=== PATIENT | female | born 1960 | race Caucasian/White ===

== ENCOUNTER 2017-10-12 13:52 | Emergency (ER) | payer MEDICAID, OTHER ==
--- NOTE | 2017-10-12 14:31 | Emergency Department Record ---
History of Present Illness - General Chief complaint: ENT Stated complaint: RINGING IN EARS Time Seen by Provider: 10/12/17 14:11 Source: Patient, Family Mode of Arrival: Ambulatory Limitations: No limitations - History of Present Illness Initial comments: 57 yo female presents with a concern about ongoing ringing in her ears. The ringing started just over 2 months ago. No trauma or recent illness. She saw her doctor. No medication were identified as the cause. She has not had any other symptoms. The ringing seems more intense today. She had an MRI about a week ago. She has not been informed regarding the results. She has not seen and ENT or rehabilitation counselor. Onset/Timin -: Month(s) Location: R ear, L ear Severity: Moderate Consistency: Constant Improves with: None Worsens with: None Context- Ear: Other (Ringing) - Related Data Previous Rx's Medication Instructions Recorded Alprazolam [Xanax] 0.25 mg PO QHS #5 tablet 10/12/17 Allergies Allergy/AdvReac Type Severity Reaction Status Date / Time cephalexin monohydrate AdvReac Unknown unknown Verified 10/12/17 14:07 [From Keflex] ciprofloxacin [From Cipro] AdvReac Unknown unknown Verified 10/12/17 14:07 ciprofloxacin HCl AdvReac Unknown unknown Verified 10/12/17 14:07 [From Cipro] naproxen sodium AdvReac Unknown unknown Verified 10/12/17 14:07 [From Anaprox] Travel Screening - Travel/Exposure Within Last 30 Days Have you traveled within the last 30 days?: No - Travel/Exposure Within Last Year Have you traveled outside the [place] in the last year?: No - Additonal Travel Details Have you been exposed to anyone with a communicable illness?: No - Travel Symptoms Symptom Screening: None Review of Systems Constitutional: Denies: Chills, Fever, Malaise, Weakness Eyes: Denies: Eye discharge, Eye pain, Photophobia, Vision change ENT: Reports: As per HPI, Hearing loss (ringing 2 months). Denies: Congestion, Dental pain, Ear pain, Epistaxis, Throat pain Respiratory: Denies: Cough, Dyspnea Cardiovascular: Denies: Chest pain, Syncope Endocrine: Denies: Fatigue Gastrointestinal: Denies: Abdominal pain, Diarrhea, Nausea, Vomiting Musculoskeletal: Denies: Arthralgia, Joint swelling, Myalgia Skin: Denies: Bruising, Change in color, Rash Neurological: Denies: Abnormal gait, Confusion, Headache, Paresthesias, Seizure , Tingling, Tremors, Vertigo Psychiatric: Denies: Anxiety Hematological/Lymphatic: Denies: Blood Clots, Easy bleeding, Easy bruising, Swollen glands Past Medical History - SOCIAL HISTORY Smoking Status: Former smoker Alcohol Use: None Drug Use: None - RESPIRATORY Hx Respiratory Disorders: Yes Hx Asthma: Yes Comment:: ?histoplasmosis -> scared lungs - CARDIOVASCULAR Hx Cardio Disorders: Yes Hx Edema: Yes (BLE) - NEURO Hx Neuro Disorders: Yes Hx of Migraines: Yes - GI Hx GI Disorders: Yes Hx Celiac Disease: Yes Hx Reflux: Yes - Hx Genitourinary Disorders: No - ENDOCRINE Hx Endocrine Disorders: No - MUSCULOSKELETAL Hx Musculoskeletal Disorders: Yes Hx Arthritis: Yes (Rheumatoid) - PSYCH Hx Psych Problems: No - HEMATOLOGY/ONCOLOGY Hx Hematology/Oncology Disorders: Yes Hx Cancer: Yes (nose skin caner) Family Medical History Any Significant Family History?: No Physical Exam - General General Appearance: Alert, Oriented x3, Cooperative, No acute distress Limitations: No limitations - Head Head exam: Normal inspection - Eye Eye exam: Normal appearance, PERRL. negative: Conjunctival injection, Scleral icterus - ENT ENT exam: Normal exam, Mucous membranes moist, TM's normal bilaterally (TM's are normal without redness or swelling, mild wax in the right ear) Ear exam: Normal external inspection. negative: Auricular hematoma, Auricular trauma, External canal tenderness Nasal Exam: negative: Active bleeding, Discharge Mouth exam: Normal external inspection Teeth exam: Normal inspection Throat exam: Normal inspection - Neck Neck exam: Normal inspection - Respiratory Respiratory exam: Normal lung sounds bilaterally. negative: Respiratory distress - Cardiovascular Cardiovascular Exam: Regular rate, Normal rhythm, Normal heart sounds - Rectal Rectal exam: Deferred - exam: Deferred - Extremities Extremities exam: Normal inspection - Back Back exam: Reports: Normal inspection - Neurological Neurological exam: Alert, CN II-XII intact, Normal gait, Oriented X3. negative : Abnormal gait, Altered - Psychiatric Psychiatric exam: Normal affect, Normal mood. negative: Agitated, Anxious - Skin Skin exam: Dry, Intact, Normal color, Warm Course Vital Signs 10/12/17 10/12/17 14:03 14:10 Temperature 97.4 F L 97.4 F L Pulse Rate [ 84 Pulse Ox Probe] Respiratory 18 18 Rate Blood Pressure 141/96 [Right Arm] Pulse Ox 98 98 - Reevaluation(s) Reevaluation #1: The TM's are normal on visual examination She is able to clearly understand normal levels of speech. 10/12/17 14:32 10/12/17 14:37 MRI from 10/04/17 reviewed. Mild small vessel disease, no infarction, hemorrhage , mass 10/12/17 14:48 The patient was advised to see her doctor this week to consider further work up or referrals She does have some anxiety from the tinnitus and trouble sleeping She will be given a very limited number of Xanax for this Disposition Disposition: Discharge Clinical Impression: Tinnitus Qualifiers: Laterality: bilateral Qualified Code(s): H93.13 - Tinnitus, bilateral Disposition: Home, Self-Care Condition: (1) Good Instructions: Tinnitus (ED) Additional Instructions: Call your doctor tomorrow to report your ongoing symptoms You may need a referral to see and ENT and an rehabilitation counselor for additional testing or evaluation Prescriptions: Alprazolam [Xanax] 0.25 mg PO QHS #5 tablet Forms: Patient Portal Access Time of Disposition: 14:49 Quality - Quality Measures Quality Measures: N/A - Blood Pressure Screening Does Patient Have Any of the Following: No Blood Pressure Classification: Hypertensive Reading Systolic Measurement: 141 Diastolic Measurement: 96 Screening for High Blood Pressure: < Pre-Hypertensive BP, F/U Documented > [ G8950] Pre-Hypertensive Follow-up Interventions: Referral to alternative/primary care provider.
== END 2017-10-12 15:01 | disposition home or self-care (01) ==
LOC: ER 13:52
DX: H93.13 Tinnitus, bilateral (principal); Z87.891 Personal history of nicotine dependence
CPT/HCPCS: 99282

== ENCOUNTER 2018-02-24 22:26 | Emergency (ER) | payer MEDICAID, OTHER ==
[2018-02-24 23:06] LABS: BASO % 0.4 % (0-6); EOS % 0.8 % (0-6); HEMATOCRIT 43.3 % (35.0-47.0); HEMOGLOBIN 14.2 gm/dl (11.6-16.0); LYMPH % 14.6 % (16-45); MEAN CELL VOLUME 93.9 fl (81-97); MEAN CORPUSCULAR HEMOGLOBIN 30.8 pg (27-33); MEAN CORPUSCULAR HGB CONC 32.8 g/dl (32-36); MEAN PLATELET VOLUME 10.8 fl (7.4-10.4); MONO % 10.2 % (0-9); PLATELET COUNT 381 K/uL (130-400); RED BLOOD COUNT 4.61 M/uL (3.80-5.40); RED CELL DISTRIBUTION WIDTH 13.7 % (11.5-14.5); WHITE BLOOD COUNT W/O DIFF 12.1 K/uL (4.2-12.2)
[2018-02-24 23:19] LABS: BLOOD UREA NITROGEN 28 mg/dL (6-20); CREATININE 0.7 mg/dL (0.5-0.9); EST GLOMERULAR FILTRATION RATE > 60 mL/min; TOTAL PROTEIN 7.9 g/dL (6.6-8.7)
[2018-02-24 23:22] LABS: GLUCOSE,RANDOM 120 mg/dL (74-109)
[2018-02-24 23:24] LABS: ALB/GLOB RATIO 1.2 (1.1-1.8); ALBUMIN 4.3 g/dL (4.0-5.0); ALKALINE PHOSPHATASE 88 U/L (35-104); ALT/SGPT 27 U/L (<33); AST/SGOT 20 U/L (10.0-35.0)
--- NOTE | 2018-02-24 23:57 | Emergency Department Record ---
History of Present Illness - General Chief Complaint: Shortness of breath Stated Complaint: NABEEL/SWELLING IN LEGS Time Seen by Provider: 02/24/18 22:53 Source: Patient Mode of Arrival: Ambulatory Limitations: No limitations - History of Present Illness Initial Comments: pt feels lasix isnt working because her legs still have swelling and shes sob. it has been in the 90s Complaint: Shortness of breath Onset/Timin -: Days(s) Severity: Mild Consistency: Getting worse Improves With: Upright position Worsens With: Lying flat, Movement Context: Anxiety, Occurred during exertion Associated Symptoms: Orthopnia Treatments Prior to Arrival: CPR - Related Data Home Oxygen Therapy: No Home Medications Medication Instructions Recorded Confirmed Last Taken Adalimumab [Humira Pen] 40 mg INJ ASDIR 02/24/18 02/24/18 Unknown Cyclobenzaprine HCl 10 mg PO Q8H 02/24/18 02/24/18 Unknown Furosemide [Lasix] 40 mg PO DAILY 02/24/18 02/24/18 02/24/18 Hydroxychloroquine Sulfate 400 mg PO DAILY 02/24/18 02/24/18 02/24/18 [Plaquenil] Previous Rx's Medication Instructions Recorded Alprazolam [Xanax] 0.25 mg PO QHS #5 tablet 10/12/17 Allergies Allergy/AdvReac Type Severity Reaction Status Date / Time cephalexin monohydrate AdvReac Unknown unknown Verified 10/12/17 14:07 [From Keflex] ciprofloxacin [From Cipro] AdvReac Unknown unknown Verified 10/12/17 14:07 ciprofloxacin HCl AdvReac Unknown unknown Verified 10/12/17 14:07 [From Cipro] naproxen sodium AdvReac Unknown unknown Verified 10/12/17 14:07 [From Anaprox] Travel Screening - Travel/Exposure Within Last 30 Days Have you traveled within the last 30 days?: No - Travel Symptoms Symptom Screening: Fatigue Review of Systems Reviewed: No additional complaints except as noted below Constitutional: Reports: As per HPI. Denies: Chills, Fever, Malaise, Night sweats, Weakness, Weight change Eyes: Reports: As per HPI. Denies: Eye discharge, Eye pain, Photophobia, Vision change ENT: Reports: As per HPI. Denies: Congestion, Dental pain, Ear pain, Epistaxis , Hearing loss, Throat pain Respiratory: Reports: As per HPI, Dyspnea. Denies: Cough, Hemoptysis, Stridor, Wheezes Cardiovascular: Reports: As per HPI. Denies: Arrhythmia, Chest pain, Dyspnea on exertion, Edema, Murmurs, Orthopnea, Palpitations, Paroxysmal nocturnal dyspnea, Rheumatic Fever, Syncope Endocrine: Reports: As per HPI. Denies: Fatigue, Heat or cold intolerance, Polydipsia, Polyuria Gastrointestinal: Reports: As per HPI. Denies: Abdominal pain, Constipation, Diarrhea, Hematemesis, Hematochezia, Melena, Nausea, Vomiting Genitourinary: Reports: As per HPI. Denies: Abnormal menses, Discharge, Dyspareunia, Dysuria, Frequency, Hematuria, Incontinence, Retention, Urgency Musculoskeletal: Reports: As per HPI. Denies: Arthralgia, Back pain, Gout, Joint swelling, Myalgia, Neck pain Skin: Reports: As per HPI. Denies: Bruising, Change in color, Change in hair/ nails, Lesions, Pruritus, Rash Neurological: Reports: As per HPI. Denies: Abnormal gait, Confusion, Headache, Numbness, Paresthesias, Seizure, Tingling, Tremors, Vertigo, Weakness Psychiatric: Reports: As per HPI. Denies: Anxiety, Auditory hallucinations, Depression, Homicidal thoughts, Suicidal thoughts, Visual hallucinations Hematological/Lymphatic: Reports: As per HPI. Denies: Anemia, Blood Clots, Easy bleeding, Easy bruising, Swollen glands Past Medical History - SOCIAL HISTORY Smoking Status: Former smoker Alcohol Use: None Drug Use: None - RESPIRATORY Hx Respiratory Disorders: Yes Hx Asthma: Yes Comment:: ?histoplasmosis -> scared lungs - CARDIOVASCULAR Hx Cardio Disorders: Yes Hx Edema: Yes (BLE) - NEURO Hx Neuro Disorders: Yes Hx of Migraines: Yes - GI Hx GI Disorders: Yes Hx Celiac Disease: Yes Hx Reflux: Yes - Hx Genitourinary Disorders: No - ENDOCRINE Hx Endocrine Disorders: No - MUSCULOSKELETAL Hx Musculoskeletal Disorders: Yes Hx Arthritis: Yes (Rheumatoid, Psoriatic) - PSYCH Hx Psych Problems: No - HEMATOLOGY/ONCOLOGY Hx Hematology/Oncology Disorders: Yes Hx Cancer: Yes (nose skin caner) Family Medical History Any Significant Family History?: No Physical Exam - General General Appearance: Alert, Oriented x3, Cooperative, Mild distress - Head Head exam: Normal inspection - Eye Eye exam: Normal appearance, PERRL, EOMI Pupils: Normal accommodation - ENT ENT exam: Normal exam, Mucous membranes moist, Normal external ear exam, Normal orophraynx Ear exam: Normal external inspection. negative: External canal tenderness Nasal Exam: Normal inspection. negative: Discharge, Sinus tenderness Mouth exam: Normal external inspection, Tongue normal Teeth exam: Normal inspection. negative: Dental caries Throat exam: Normal inspection. negative: Tonsillar erythema, Tonsillar exudate - Neck Neck exam: Normal inspection, Full ROM. negative: Tenderness - Respiratory Respiratory exam: Normal lung sounds bilaterally. negative: Respiratory distress - Cardiovascular Cardiovascular Exam: Regular rate, Normal rhythm, Normal heart sounds - GI/Abdominal GI/Abdominal exam: Soft, Normal bowel sounds. negative: Tenderness - Rectal Rectal exam: Deferred - exam: Deferred - Extremities Extremities exam: Normal inspection, Full ROM, Normal capillary refill, Pedal edema. negative: Tenderness - Back Back exam: Reports: Normal inspection, Full ROM. Denies: Muscle spasm, Rash noted, Tenderness - Neurological Neurological exam: Alert, CN II-XII intact, Normal gait, Oriented X3 - Psychiatric Psychiatric exam: Normal affect, Normal mood - Skin Skin exam: Dry, Intact, Normal color, Warm Course Vital Signs 02/24/18 02/24/18 02/24/18 22:28 22:31 23:17 Temperature 98 F Pulse Rate [ 100 H 84 Pulse Ox Probe] Respiratory 28 H 24 Rate Blood Pressure 135/89 134/99 [Left Arm] Pulse Ox 96 95 94 L Medical Decision Making - Lab Data Result diagrams: 02/24/18 22:30 02/24/18 22:30 Lab Results 02/24/18 02/24/18 Range/Units 22:30 22:30 WBC 12.1 (4.2-12.2) K/uL RBC 4.61 (3.80-5.40) M/uL Hgb 14.2 (11.6-16.0) gm/dl Hct 43.3 (35.0-47.0) % MCV 93.9 (81-97) fl MCH 30.8 (27-33) pg MCHC 32.8 (32-36) g/dl RDW 13.7 (11.5-14.5) % Plt Count 381 (130-400) K/uL MPV 10.8 H (7.4-10.4) fl Gran % 74.0 (47-80) % Lymphocytes % 14.6 L (16-45) % Monocytes % 10.2 H (0-9) % Eosinophils % 0.8 (0-6) % Basophils % 0.4 (0-6) % Sodium 143 (136-145) mmol/L Potassium 4.0 (3.4-4.5) mmol/L Chloride 100 (98-107) mmol/L Carbon Dioxide 26.0 (22-29) mmol/L Anion Gap 17.0 H (7-16) BUN 28 H (6-20) mg/dL Creatinine 0.7 (0.5-0.9) mg/dL Estimated GFR > 60 mL/min Random Glucose 120 H (74-109) mg/dL Calcium 9.7 (8.6-10.0) mg/dL Total Bilirubin 0.30 (0.2-1.0) mg/dL AST 20 (10.0-35.0) U/L ALT 27 (<33) U/L Alkaline Phosphatase 88 (35-104) U/L NT-Pro-B Natriuret Pep 147.70 H (<125) pg/mL Total Protein 7.9 (6.6-8.7) g/dL Albumin 4.3 (4.0-5.0) g/dL Globulin 3.6 (1.4-4.8) gm/dL Albumin/Globulin Ratio 1.2 (1.1-1.8) Disposition Disposition: Discharge Clinical Impression: Swelling of lower leg, SOB (shortness of breath) Disposition: Home, Self-Care Condition: (1) Good Instructions: Shortness of Breath (ED), Leg Edema (ED) Additional Instructions: follow up with family doctor. return sooner if worse. elevate legs Quality - Quality Measures Quality Measures: N/A - Blood Pressure Screening Does Patient Have Any of the Following: No Blood Pressure Classification: Hypertensive Reading Systolic Measurement: 134 Diastolic Measurement: 99 Screening for High Blood Pressure: < Pre-Hypertensive BP, F/U Documented > [ G8950] Pre-Hypertensive Follow-up Interventions: Follow-up with rescreen every year.
--- NOTE | 2018-02-27 08:09 | RADIOLOGY REPORT ---
EXAM: CHEST, TWO VIEWS HISTORY: WORSENING BILATERAL LOWER EXTREMITY EDEMA. DIFFICULTY IN BREATHING. TECHNIQUE: Upright PA and lateral views of the chest were obtained. Comparison: Two view chest radiographic examination dated 08/22/15. FINDINGS: The heart is not enlarged and the pulmonary vasculature is not dilated. The thoracic aorta is tortuous and atherosclerotic. Mild elevation of the left hemidiaphragm persists. No new confluent air space opacity is seen nor is there costophrenic angle blunting or pneumothorax. Healed granulomatous disease is again suggested in the right hemithorax. There are mild degenerative changes scattered throughout the visualized spine. IMPRESSION: 1. NO RADIOGRAPHIC EVIDENCE OF ACUTE CARDIOPULMONARY DISEASE. 2. TORTUOUS ATHEROSCLEROTIC THORACIC AORTA. 3. HEALED GRANULOMATOUS DISEASE REDEMONSTRATED IN THE RIGHT HEMITHORAX. JOB NUMBER: [id number] [facility]
== END 2018-02-25 00:06 | disposition home or self-care (01) ==
LOC: ER 22:26
DX: R60.0 Localized edema (principal); R06.02 Shortness of breath; Z87.891 Personal history of nicotine dependence
CPT/HCPCS: 71046; 80053; 83880; 85025; 99283; 99284

== ENCOUNTER 2018-08-03 11:13 | Emergency (ER) | payer MEDICAID ==
[2018-08-03 12:01] LABS: BASO % 1.2 % (0-6); EOS % 1.8 % (0-6); GRAN % 67.4 % (47-80); HEMATOCRIT 45.1 % (35.0-47.0); HEMOGLOBIN 14.4 gm/dl (11.6-16.0); LYMPH % 18.9 % (16-45); MEAN CORPUSCULAR HEMOGLOBIN 29.4 pg (27-33); MEAN CORPUSCULAR HGB CONC 31.9 g/dl (32-36); MEAN PLATELET VOLUME 10.7 fl (7.4-10.4); MONO % 10.7 % (0-9); PLATELET COUNT 323 K/uL (130-400); RED CELL DISTRIBUTION WIDTH 13.9 % (11.5-14.5); WHITE BLOOD COUNT W/O DIFF 6.8 K/uL (4.2-12.2)
[2018-08-03 12:11] LABS: BLOOD UREA NITROGEN 20 mg/dL (6-20); CREATININE 0.9 mg/dL (0.5-0.9); EST GLOMERULAR FILTRATION RATE > 60 mL/min
[2018-08-03 12:14] LABS: GLUCOSE,RANDOM 125 mg/dL (74-109)
[2018-08-03 12:15] LABS: PARTIAL THROMBOPLASTIN TIME 26.8 SECONDS (24.5-39.1); PROTHROMBIN TIME (PATIENT) 10.3 SECONDS (9.5-12.1)
--- NOTE | 2018-08-03 12:16 | Emergency Department Record ---
History of Present Illness - General Chief Complaint: Slurred speech Stated Complaint: TROUBLE TALKING Time Seen by Provider: 08/03/18 11:24 Mode of Arrival: Stretcher - History of Present Illness Onset/Timin -: Hour(s) Location: Speech History of same: No Place: Home Severity: Moderate Improves With: None Worsens With: None On Anticoagulants: No Context: Sudden onset Associated Symptoms: Headaches Treatments Prior to Arrival: None - Vern Coma Scale Eye Response: (4) Open spontaneously Motor Response: (6) Obeys commands Verbal Response: (5) Oriented Vern Total: 15 - Symptoms of Stroke Onset of Symptoms Date: 08/03/18 Onset of Symptoms Time: 10:30 Symptoms of stroke: Speech Dysfunction - Related Data Home Medications: Previous Rx's Medication Instructions Recorded Alprazolam [Xanax] 0.25 mg PO QHS #5 tablet 10/12/17 Allergies/Adverse Reactions: Allergies Allergy/AdvReac Type Severity Reaction Status Date / Time cephalexin monohydrate AdvReac Unknown unknown Verified 10/12/17 14:07 [From Keflex] ciprofloxacin [From Cipro] AdvReac Unknown unknown Verified 10/12/17 14:07 ciprofloxacin HCl AdvReac Unknown unknown Verified 10/12/17 14:07 [From Cipro] naproxen sodium AdvReac Unknown unknown Verified 10/12/17 14:07 [From Anaprox] Travel Screening - Travel/Exposure Within Last 30 Days Have you traveled within the last 30 days?: No Past Medical History - SOCIAL HISTORY Smoking Status: Former smoker - RESPIRATORY Hx Respiratory Disorders: Yes Hx Asthma: Yes Comment:: ?histoplasmosis -> scared lungs - CARDIOVASCULAR Hx Cardio Disorders: Yes Hx Edema: Yes (BLE) - NEURO Hx Neuro Disorders: Yes Hx of Migraines: Yes - GI Hx GI Disorders: Yes Hx Celiac Disease: Yes Hx Reflux: Yes - Hx Genitourinary Disorders: No - ENDOCRINE Hx Endocrine Disorders: No - MUSCULOSKELETAL Hx Musculoskeletal Disorders: Yes Hx Arthritis: Yes (Rheumatoid, Psoriatic) - PSYCH Hx Psych Problems: No - HEMATOLOGY/ONCOLOGY Hx Hematology/Oncology Disorders: Yes Hx Cancer: Yes (nose skin caner) Family Medical History Any Significant Family History?: No Stroke Assessment - NIH Stroke Scale 1a. Level of Consciousness: (0) Alert 1b. LOC Questions: (0) Answers Correctly 1c. LOC Commands: (0) Performs Tasks Correctly 2. Best Gaze: (0) Normal 3. Visual: (0) No Visual Loss 4. Facial Palsy: (0) Normal Symmetrical Movement 5a. Motor Arm Left: (0) No Drift 5b. Motor Arm Right: (0) No Drift 6a. Motor Leg Left: (0) No Drift 6b. Motor Leg Right: (0) No Drift 7. Limb Ataxia: (0) Absent 8. Sensory: (0) Normal 9. Best Language: (1) Mild/Moderate Aphasia 10. Dysarthria: (0) Normal 11. Extinction/Inattention: (0) No Abnormality NIH Stoke Scale Total: 1 NIH Stroke Scale Date: 08/03/18 NIH Stroke Scale Time: 12:23 Course Vital Signs 08/03/18 11:18 Temperature 97.8 F Pulse Rate 95 H Respiratory 20 Rate Blood Pressure 143/103 Pulse Ox 93 L - Reevaluation(s) Reevaluation #1: 08/03/18 12:[address] Report neg for acute injury per radiologist. Pt prefers [facility] in [place]. Dr. Peña in ED accepts to ED> Pt and aware. Procedures - EKG Initial Date: 08/03/18 Time: 11:50 EKG: Normal EKG Medical Decision Making - Management Options MDM Management: Additional Work-up Planned (e.g. ADM/Transfer/OP Study) - Data Complexity MDM Data: Labs Ordered and/or Reviewed, X-Ray Ordered and/or Reviewed, EKG Ordered and/or Reviewed - Lab Data Result diagrams: 08/03/18 11:50 08/03/18 11:50 Lab Results 08/03/18 Range/Units 11:50 WBC 6.8 (4.2-12.2) K/uL RBC 4.90 (3.80-5.40) M/uL Hgb 14.4 (11.6-16.0) gm/dl Hct 45.1 (35.0-47.0) % MCV 92.0 (81-97) fl MCH 29.4 (27-33) pg MCHC 31.9 L (32-36) g/dl RDW 13.9 (11.5-14.5) % Plt Count 323 (130-400) K/uL MPV 10.7 H (7.4-10.4) fl Gran % 67.4 (47-80) % Lymphocytes % 18.9 (16-45) % Monocytes % 10.7 H (0-9) % Eosinophils % 1.8 (0-6) % Basophils % 1.2 (0-6) % - EKG Data -: EKG Interpreted by Me EKG: Normal EKG - Radiology Data Radiology results: Report reviewed, Image reviewed Neg per rads Critical Care Time Critical Care Time: Yes (CVA symptoms and transfer) Total Critical Care Time: 40 Disposition Disposition: Transfer Clinical Impression: Dysarthria Disposition: Acute Care Hospital Transfer Transfer To: [facility] Reason For Transfer: Stroke Symptoms Accepting Physician: Dr. Peña - ED Time Discussed w/Accepting Physician: 12:17 Condition: (3) Guarded Forms: Patient Portal Access Quality - Quality Measures Quality Measures: N/A - Blood Pressure Screening Does Patient Have Any of the Following: No Blood Pressure Classification: Hypertensive Reading Systolic Measurement: 143 Diastolic Measurement: 103 Screening for High Blood Pressure: < Pre-Hypertensive BP, F/U Documented > [ G8950] Pre-Hypertensive Follow-up Interventions: Follow-up with rescreen every year.
--- NOTE | 2018-08-05 08:01 | CT SCAN REPORT ---
EXAM: NONCONTRAST CT HEAD HISTORY: HEADACHE AND TRANSIENT DYSPHAGIA. TECHNIQUE: Noncontrast CT head was obtained. Comparison: None. FINDINGS: No midline shift, mass effect, or abnormal intra or extraaxial fluid collection. No cerebral edema, focal mass, or intracranial hemorrhage detected. The ventricle sizes are within normal limits. The basal cisterns are not effaced. No displaced skull fracture is seen. The paranasal sinuses are clear. Within the left paramedian scalp along the top of the skull there is a partially visualized partially calcified lesion in the subcutaneous tissues measuring up to 12 mm in width (series 601 image 67). IMPRESSION: 1. NO ACUTE INTRACRANIAL FINDINGS. 2. INCIDENTAL INDETERMINATE PARTIALLY SEEN, PARTIALLY CALCIFIED LESION IN THE SCALP ALONG THE TOP OF THE SKULL. RECOMMEND CORRELATION WITH PHYSICAL EXAMINATION. JOB NUMBER: [id number] [facility]
--- NOTE | 2018-08-05 08:03 | RADIOLOGY REPORT ---
EXAM: CHEST HISTORY: COUGH. TECHNIQUE: Two views of the chest were obtained. Comparison: Chest radiograph 02/24/18. FINDINGS: The cardiac silhouette is within normal size limits. The pulmonary vasculature is nondilated. No new focal pulmonary opacities. Right hilar and right lung base calcified granulomas/lymph nodes, unchanged from prior. No pleural effusion or pneumothorax. IMPRESSION: NO ACUTE LUNG FINDINGS. [facility]OB [facility]BER: [id number] [facility]
== END 2018-08-03 13:31 | disposition short-term general hospital (02) ==
LOC: ER 11:13
DX: I63.9 Cerebral infarction, unspecified (principal); R47.1 Dysarthria and anarthria; R29.701 NIHSS score 1; R51 Headache; R05 Cough; Z87.891 Personal history of nicotine dependence
CPT/HCPCS: 70450; 71046; 80048; 85025; 85610; 85730; 93005; 93010; 99285